=== PATIENT | male | born 1955 | race Caucasian/White ===

== ENCOUNTER → 2023-10-17 | Outpatient (CLI) | payer OTHER ==
[~2023-10-17] MED LIST: IOHEXOL 350 MG/ML 100ML INFUS..BTL IV ONE
== END | disposition home or self-care (01) ==
LOC: RAH 08:01
PROVIDERS: ATTEND Internal Medicine Cardiovascular Disease
DX: I70.0 Atherosclerosis of aorta (principal); I51.7 Cardiomegaly; M47.815 Spondylosis without myelopathy or radiculopathy, thoracolumbar region; I72.9 Aneurysm of unspecified site; R59.0 Localized enlarged lymph nodes
CPT/HCPCS: 74175; 71275; Q9967